=== PATIENT | male | born 1935 | race Caucasian/White ===

== ENCOUNTER → 2017-05-05 11:27 | Outpatient (CLI) | payer MEDICARE, SELFPAY ==
[2017-05-05 14:33] LABS: Hematocrit 44.6 % (40-54); Hemoglobin 14.6 g/dl (13.0-16.5); Mean Corp Hgb Conc 32.7 g/gl (32-36); Mean Corpuscular Hgb 31.9 pg (27.0-32.0); Mean Corpuscular Volume 97.4 fL (80-94); Mean Platelet Vol. 11.1 fl (6.2-12.0); Platelet Count 176 K/mm3 (150-450); RBC Distribution Width CV 13.5 % (11.6-14.6); RBC Distribution Width SD 48.4 fl (35.1-43.9); Red Blood Count 4.58 M/mm3 (4.6-6.2); White Blood Count 5.9 K/mm3 (4.4-11.0)
[2017-05-05 14:36] LABS: Scan Indicated on CBC? Y/N NO
[2017-05-05 14:45] LABS: ALB/GLOB Ratio 0.8 RATIO (0.9-2.4); AST(SGOT) 29 U/L (15-37); Alanine Aminotransfer ALT/SGPT 37 U/L (16-61); Albumin, Serum 3.4 g/dL (3.2-5.0); Alkaline Phosphatase 89 U/L (45-117); Anion Gap 8 (5-15); BUN 16 mg/dL (7-18); BUN/Creat Ratio 15.4 RATIO (10-20); Calcium,Total 8.8 mg/dL (8.5-10.1); Chloride 106 mmol/L (98-107); Creatinine, Serum 1.04 mg/dL (0.70-1.30); EST Glomerular Filtration Rate 73 mL/min (>60); Est Glom Filt Rate - Afr Amer 88 mL/min (>60); Glucose 134 mg/dL (74-106); Potassium 4.3 mmol/L (3.5-5.1); Protein, Total 7.4 g/dL (6.4-8.2); Sodium Level 140 mmol/L (136-145); Thyroid Stim Hormone (TSH) 1.16 uIU/mL (0.358-3.74)
[2017-05-06 08:34] LABS: Vitamin B12 382 pg/mL (211-911)
== END ==
PROVIDERS: Family Provider Family Medicine; PCP Family Medicine; Visit Provider Family Medicine
DX: E11.9 Type 2 diabetes mellitus without complications (principal); R41.3 Other amnesia
CPT/HCPCS: 36415; 80053; 82607; 84443; 85027

== ENCOUNTER → 2018-05-27 | Outpatient (CLI) | payer MEDICARE, SELFPAY ==
[2014-02-21 11:14] VITALS: BMI 25.0
[2018-05-27 14:25] LABS: Anion Gap 10 (5-15); BUN 18 mg/dL (7-18); BUN/Creat Ratio 16.7 RATIO (10-20); Chloride 102 mmol/L (98-107); Cholesterol 171 mg/dL (200); Creatinine, Serum 1.08 mg/dL (0.70-1.30); EST Glomerular Filtration Rate 69 mL/min (>60); Est Glom Filt Rate - Afr Amer 84 mL/min (>60); Glucose 180 mg/dL (74-106); High Density Lipoprotein 65 mg/dL; Potassium 4.2 mmol/L (3.5-5.1); Sodium Level 139 mmol/L (136-145); Triglycerides 171 mg/dL; Very Low Density Lipoprotein 34 mg/dL (5-40)
== END | disposition home or self-care (01) ==
PROVIDERS: Family Provider Family Medicine; PCP Family Medicine; Referring Provider Family Medicine; Visit Provider Family Medicine
DX: I10 Essential (primary) hypertension (principal)
CPT/HCPCS: 36415; 80048; 80061

== ENCOUNTER → 2018-12-23 | Outpatient (CLI) | payer MEDICARE, SELFPAY ==
[2014-02-21 11:14] VITALS: BMI 25.0
--- NOTE | 2018-12-23 10:30 | LES_PTH ---
PATIENT: AUDRA MAURICE LOC: YE U#:[id number] AGE/SX: 83/M ROOM: RE12/23/[address]: Dr. Ron Riggins MD : [id number] BED: DIS: 12/23/2018 SPEC #: [id number] RECD: 12/23/18 14:35 STATUS: FRANCINE SOHAN #: [id number] CATRACHITO: 12/23/18 10:[address]: Ron Riggins DEPT: SURGICAL PATHOLOGY RECD BY: Syed De La Cruz Tissues: A - Skin of back, NOS B - Skin of chest Procedures: Surgery Specimen Level IV HEADER OPERATION: Shave biopsy right upper back; shave biopsy chest PRE-OP DIAGNOSIS: ?SCC; ?BCC TISSUE SUBMITTED: A - Right upper back, B - Chest MICROSCOPIC DIAGNOSIS A. Skin lesion of right upper back, shave biopsy: Basal cell carcinoma, superficial, multifocal. See comment. B. Skin lesion of chest, shave biopsy: Basal cell carcinoma, superficial, multifocal. See comment. AM:joaquin 12/27/18 COMMENT A. The lesion extends focally to the deep margin of excision. Clinical correlation is suggested. B. The lesion focally extends to the deep margin of excision. Case has been reviewed in consultation with Dr. Gallegos who concurs with the above diagnosis. IDC:[email or web address] MICROSCOPIC DESCRIPTION Slides are reviewed. GROSS DESCRIPTION A - Received in fixative is one container labeled with the patient's name and designated right back. The specimen consists of a shave biopsy of amezcua-white skin measuring 2.5 x 1.7 x 0.1 cm. The specimen is inked and submitted entirely in one cassette. It will be sectioned at the time of embedding. B - Received in fixative is one container labeled with the patient's name and designated right chest. The specimen consists of a shave biopsy of amezcua-white skin measuring 0.5 x 0.5 x 0.1 cm. The specimen is inked and submitted entirely in one cassette. It will be bisected at the time of embedding. / KEIRY:joaquin 12/24/18 TC:0 [facility]: [id number] x2
== END | disposition home or self-care (01) ==
LOC: LABSPEC 15:04
PROVIDERS: Family Provider Family Medicine; PCP Family Medicine; Referring Provider Family Medicine; Visit Provider Family Medicine
DX: C44.519 Basal cell carcinoma of skin of other part of trunk (principal)
CPT/HCPCS: 88305

== ENCOUNTER → 2019-11-18 | Outpatient (CLI) | payer MEDICARE, SELFPAY ==
[2014-02-21 11:14] VITALS: BMI 25.0
[2019-11-18 16:00] LABS: ALB/GLOB Ratio 0.7 RATIO (0.9-2.4); AST(SGOT) 35 U/L (15-37); Alanine Aminotransfer ALT/SGPT 39 U/L (16-61); Albumin, Serum 3.1 g/dL (3.2-5.0); Alkaline Phosphatase 98 U/L (45-117); Anion Gap 7 (5-15); BUN 17 mg/dL (7-18); BUN/Creat Ratio 15.7 RATIO (10-20); Calcium,Total 9.2 mg/dL (8.5-10.1); Chloride 105 mmol/L (98-107); Cholesterol 151 mg/dL (200); Creatinine, Serum 1.08 mg/dL (0.70-1.30); EST Glomerular Filtration Rate 69 mL/min (>60); Est Glom Filt Rate - Afr Amer 84 mL/min (>60); Globulin 4.7 g/dL (2.2-4.2); Glucose 139 mg/dL (74-106); High Density Lipoprotein 74 mg/dL; Potassium 4.7 mmol/L (3.5-5.1); Protein, Total 7.8 g/dL (6.4-8.2); Sodium Level 138 mmol/L (136-145); Thyroid Stim Hormone (TSH) 1.09 uIU/mL (0.358-3.74); Triglycerides 132 mg/dL; Very Low Density Lipoprotein 26 mg/dL (5-40)
== END | disposition home or self-care (01) ==
LOC: MFPLAB 11:27
PROVIDERS: PCP Family Medicine; Referring Provider Family Medicine; Visit Provider Family Medicine
DX: E11.9 Type 2 diabetes mellitus without complications (principal)
CPT/HCPCS: 36415; 80053; 80061; 84443

== ENCOUNTER → 2020-02-23 | Outpatient (CLI) | payer MEDICARE, SELFPAY ==
[2020-02-01 11:12] VITALS: BMI 26.3
== END | disposition home or self-care (01) ==
LOC: LABSPEC 14:42
PROVIDERS: PCP Family Medicine; Visit Provider Surgery
DX: D49.2 Neoplasm of unspecified behavior of bone, soft tissue, and skin (principal); L98.492 Non-pressure chronic ulcer of skin of other sites with fat layer exposed; Z85.828 Personal history of other malignant neoplasm of skin
CPT/HCPCS: 87070; 87075; 87205

== ENCOUNTER → 2020-03-06 11:18 | Outpatient (CLI) | payer MEDICARE, SELFPAY ==
[2020-02-01 11:12] VITALS: BMI 26.3
[2020-03-06 15:37] LABS: ALB/GLOB Ratio 0.6 RATIO (0.9-2.4); AST(SGOT) 39 U/L (15-37); Alanine Aminotransfer ALT/SGPT 40 U/L (16-61); Alkaline Phosphatase 111 U/L (45-117); Anion Gap 9 (5-15); BUN 17 mg/dL (7-18); BUN/Creat Ratio 14.4 RATIO (10-20); Calcium,Total 8.7 mg/dL (8.5-10.1); Chloride 101 mmol/L (98-107); Creatinine, Serum 1.18 mg/dL (0.70-1.30); EST Glomerular Filtration Rate 62 mL/min (>60); Est Glom Filt Rate - Afr Amer 75 mL/min (>60); Globulin 4.8 g/dL (2.2-4.2); Glucose 261 mg/dL (74-106); Protein, Total 7.8 g/dL (6.4-8.2); Sodium Level 134 mmol/L (136-145)
== END ==
PROVIDERS: PCP Family Medicine; Referring Provider Nurse Practitioner Family; Visit Provider Nurse Practitioner Family
DX: D49.2 Neoplasm of unspecified behavior of bone, soft tissue, and skin (principal); L98.492 Non-pressure chronic ulcer of skin of other sites with fat layer exposed; Z85.828 Personal history of other malignant neoplasm of skin
CPT/HCPCS: 36415; 80053

== ENCOUNTER 2020-03-15 11:00 | Outpatient (RCR) | payer MEDICARE, SELFPAY ==
[2020-02-01 11:12] VITALS: BMI 26.3
== END 2020-03-15 23:59 ==
LOC: IMMUN 11:00
PROVIDERS: PCP Family Medicine; Visit Provider Family Medicine
DX: Z23 Encounter for immunization (principal)
CPT/HCPCS: 0011A; 0012A; 91301

== ENCOUNTER → 2020-03-28 13:56 | Outpatient (CLI) | payer MEDICARE, SELFPAY ==
[2020-02-01 11:12] VITALS: BMI 26.3
[2020-03-28 14:34] LABS: ALB/GLOB Ratio 0.6 RATIO (0.9-2.4); AST(SGOT) 37 U/L (15-37); Alanine Aminotransfer ALT/SGPT 32 U/L (16-61); Alkaline Phosphatase 104 U/L (45-117); Anion Gap 5 (5-15); BUN 21 mg/dL (7-18); BUN/Creat Ratio 18.4 RATIO (10-20); Calcium,Total 9.3 mg/dL (8.5-10.1); Chloride 105 mmol/L (98-107); Creatinine, Serum 1.14 mg/dL (0.70-1.30); EST Glomerular Filtration Rate 65 mL/min (>60); Est Glom Filt Rate - Afr Amer 79 mL/min (>60); Globulin 4.9 g/dL (2.2-4.2); Glucose 107 mg/dL (74-106); Potassium 4.4 mmol/L (3.5-5.1); Protein, Total 7.9 g/dL (6.4-8.2); Sodium Level 138 mmol/L (136-145)
== END ==
PROVIDERS: Nurse Practitioner Family; PCP Family Medicine; Referring Provider Surgery; Visit Provider Surgery
DX: D49.2 Neoplasm of unspecified behavior of bone, soft tissue, and skin (principal); L98.492 Non-pressure chronic ulcer of skin of other sites with fat layer exposed; Z85.828 Personal history of other malignant neoplasm of skin
CPT/HCPCS: 36415; 80053

== ENCOUNTER → 2020-04-27 10:17 | Outpatient (CLI) | payer MEDICARE, SELFPAY ==
[2020-02-01 11:12] VITALS: BMI 26.3
[2020-04-27 10:54] LABS: ALB/GLOB Ratio 0.6 RATIO (0.9-2.4); AST(SGOT) 35 U/L (15-37); Alanine Aminotransfer ALT/SGPT 31 U/L (16-61); Albumin, Serum 2.9 g/dL (3.2-5.0); Alkaline Phosphatase 107 U/L (45-117); Anion Gap 7 (5-15); BUN 19 mg/dL (7-18); BUN/Creat Ratio 14.6 RATIO (10-20); Calcium,Total 8.9 mg/dL (8.5-10.1); Chloride 102 mmol/L (98-107); EST Glomerular Filtration Rate 56 mL/min (>60); Est Glom Filt Rate - Afr Amer 67 mL/min (>60); Globulin 4.9 g/dL (2.2-4.2); Glucose 286 mg/dL (74-106); Potassium 4.4 mmol/L (3.5-5.1); Protein, Total 7.8 g/dL (6.4-8.2); Sodium Level 136 mmol/L (136-145)
== END ==
PROVIDERS: Nurse Practitioner Family; PCP Family Medicine; Referring Provider Surgery; Visit Provider Surgery
DX: D49.2 Neoplasm of unspecified behavior of bone, soft tissue, and skin (principal); L98.492 Non-pressure chronic ulcer of skin of other sites with fat layer exposed; Z85.828 Personal history of other malignant neoplasm of skin
CPT/HCPCS: 36415; 80053

== ENCOUNTER → 2020-11-13 09:30 | Outpatient (CLI) | payer MEDICARE, SELFPAY ==
[2020-11-13 16:00] LABS: ALB/GLOB Ratio 0.4 RATIO (0.9-2.4); AST(SGOT) 38 U/L (15-37); Alanine Aminotransfer ALT/SGPT 31 U/L (16-61); Albumin, Serum 2.4 g/dL (3.2-5.0); Alkaline Phosphatase 91 U/L (45-117); Anion Gap 9 (5-15); BUN 20 mg/dL (7-18); BUN/Creat Ratio 18.9 RATIO (10-20); Chloride 103 mmol/L (98-107); Cholesterol 116 mg/dL (200); Creatinine, Serum 1.06 mg/dL (0.70-1.30); EST Glomerular Filtration Rate 70 mL/min (>60); Est Glom Filt Rate - Afr Amer 85 mL/min (>60); Globulin 6.2 g/dL (2.2-4.2); Glucose 141 mg/dL (74-106); High Density Lipoprotein 57 mg/dL; Potassium 4.1 mmol/L (3.5-5.1); Protein, Total 8.6 g/dL (6.4-8.2); Sodium Level 138 mmol/L (136-145); Thyroid Stim Hormone (TSH) 1.26 uIU/mL (0.358-3.74); Triglycerides 98 mg/dL; Very Low Density Lipoprotein 20 mg/dL (5-40)
== END ==
PROVIDERS: PCP Family Medicine; Referring Provider Family Medicine; Visit Provider Family Medicine
DX: E11.9 Type 2 diabetes mellitus without complications (principal)
CPT/HCPCS: 36415; 80053; 80061; 84443

== ENCOUNTER 2021-05-31 14:17 | Outpatient (CLI) | payer MEDICARE, SELFPAY ==
[2021-05-31 17:47] LABS: Hematocrit 30.9 % (40-54); Hemoglobin 10.1 g/dL (13.0-16.5); Mean Corp Hgb Conc 32.7 g/dL (32-36); Mean Corpuscular Hgb 32.5 pg (27.0-32.0); Mean Corpuscular Volume 99.4 fL (80-94); Mean Platelet Vol. 10.2 fl (6.2-12.0); Platelet Count 196 K/mm3 (150-450); RBC Distribution Width CV 15.3 % (11.6-14.6); RBC Distribution Width SD 55.2 fl (35.1-43.9); Red Blood Count 3.11 M/mm3 (4.6-6.2); White Blood Count 4.5 K/mm3 (4.4-11.0)
[2021-05-31 18:11] LABS: ALB/GLOB Ratio 0.3 RATIO (0.9-2.4); AST(SGOT) 42 U/L (15-37); Alanine Aminotransfer ALT/SGPT 28 U/L (16-61); Albumin, Serum 1.8 g/dL (3.2-5.0); Alkaline Phosphatase 99 U/L (45-117); Anion Gap 11 (5-15); BUN 22 mg/dL (7-18); BUN/Creat Ratio 18.6 RATIO (10-20); Calcium,Total 8.8 mg/dL (8.5-10.1); Chloride 101 mmol/L (98-107); Creatinine, Serum 1.18 mg/dL (0.70-1.30); EST Glomerular Filtration Rate 62 mL/min (>60); Est Glom Filt Rate - Afr Amer 75 mL/min (>60); Globulin 7.1 g/dL (2.2-4.2); Glucose 116 mg/dL (74-106); Prealbumin 6.3 mg/dL (20.0-40.0); Protein, Total 8.9 g/dL (6.4-8.2); Sodium Level 134 mmol/L (136-145); Thyroid Stim Hormone (TSH) 1.25 uIU/mL (0.358-3.74)
[2021-05-31 18:24] LABS: Erythrocyte Sedimentation Rate 57 mm/hr (0-20)
== END 2021-05-31 23:59 | disposition home or self-care (01) ==
LOC: MFPLAB 14:18
PROVIDERS: PCP Family Medicine; Referring Provider Family Medicine; Visit Provider Family Medicine
DX: R63.4 Abnormal weight loss (principal)
CPT/HCPCS: 36415; 80053; 84134; 84443; 85027; 85652

== ENCOUNTER → 2021-06-13 | Outpatient (CLI) | payer MEDICARE, SELFPAY ==
--- NOTE | 2021-06-13 12:52 | RAD_ITS ---
STUDY: X-RAY CHEST REASON FOR EXAM: Male, 86 years old. CHEST PAIN SOB TECHNIQUE: XR Chest 2 Views COMPARISON: 114 FINDINGS: There are bilateral pleural effusions. There are bilateral infiltrates. Normal size heart. Normal mediastinum and alexy. Normal visualized pulmonary arteries. There is atherosclerotic calcification of the aortic arch with tortuosity. There are diffuse degenerative changes of the visualized thoracic spine. There is degenerative osteoarthritis of the bilateral shoulders. There is no demonstrated abnormality of the visualized soft tissue structures of the upper abdomen. RAD/Chest PA and Lateral IMPRESSION: There are bilateral pleural effusions. There are bilateral infiltrates. Electronically Signed: Toño Nixon MD at 15:40 EDT ,
== END | disposition home or self-care (01) ==
LOC: MTRAD 12:51
PROVIDERS: PCP Family Medicine; Referring Provider Family Medicine; Visit Provider Family Medicine
DX: R06.02 Shortness of breath (principal)
CPT/HCPCS: 71046

== ENCOUNTER → 2021-06-13 | Outpatient (CLI) | payer MEDICARE, SELFPAY ==
--- NOTE | 2021-06-13 16:57 | CT_ITS ---
EXAM: CT CHEST WITH INTRAVENOUS CONTRAST CLINICAL INDICATION: bilateral pleural effusion Shortness of breath. TECHNIQUE: Helically acquired images were obtained of the chest with intravenous contrast. This CT exam was performed using one or more of the following dose reduction techniques: automated exposure control, adjustment of the mA and/or kV according to patient size, and/or use of iterative reconstruction technique. This report was created using VUEL[employer]IC report generation technology. CONTRAST: IV 100mL Isovue-300 RADIATION DOSE: CTDIvol = 15.19 mGy, DLP = 534.45 mGy-cm COMPARISON: None. FINDINGS: LUNGS AND PLEURAL SPACES: There is bilateral pneumonia. There are bilateral pleural effusions. No mass. HEART: There are calcifications of the coronary arteries. Heart size is normal. No pericardial effusion. MEDIASTINUM: Unremarkable. No mediastinal or hilar adenopathy. Esophagus is unremarkable. No hiatal hernia. THYROID: Unremarkable. No thyroid lesions. BONES/JOINTS: Healed right rib fractures. There are degenerative changes of the shoulders. There are multi-level degenerative changes of the thoracic spine. No suspicious lytic or blastic abnormality. VASCULATURE: There is atherosclerotic calcification of the aortic arch with tortuosity and elongation of the aortic arch and descending thoracic aorta. Thoracic aorta is non-dilated. No thoracic aortic dissection. No obvious central pulmonary embolism although this study was not performed with the pulmonary embolism protocol. LIVER: The liver is nodular in appearance. A focal mass is not identified. The finding is consistent for hepatic cirrhosis. GALLBLADDER AND BILE DUCTS: Solitary gallstone. INTRAPERITONEAL SPACE: Perihepatic ascites. CT/Chest WITH Contrast IMPRESSION: 1. The liver is nodular in appearance. A focal mass is not identified. The finding is consistent for hepatic cirrhosis. 2. Solitary gallstone. 3. Perihepatic ascites. 4. There is bilateral pneumonia. 5. There are bilateral pleural effusions. Electronically Signed: Toño Nixon MD at 17:41 EDT ,
== END | disposition home or self-care (01) ==
LOC: CT 16:54
PROVIDERS: PCP Family Medicine; Referring Provider Family Medicine; Visit Provider Family Medicine
DX: R06.02 Shortness of breath (principal); J90 Pleural effusion, not elsewhere classified
CPT/HCPCS: 71046; 71260; Q9967

== ENCOUNTER → 2021-06-14 | Outpatient (CLI) | payer MEDICARE, SELFPAY ==
[2021-06-14 15:03] LABS: Absolute Lymphocyte Count 0.82 X10^3/uL (0.83-4.51); Absolute Neutrophil Count 3.3 X10^3/uL (2.0-7.7); Basophil# 0.03 X10^3/uL; Basophil% 0.6 % (0-1); Hemoglobin 10.2 g/dL (13.0-16.5); Lymphocyte # 0.82 X10^3/ul (0.83-4.51); Lymphocyte % 16.1 % (19-41); Mean Corp Hgb Conc 31.9 g/dL (32-36); Mean Corpuscular Hgb 32.2 pg (27.0-32.0); Mean Corpuscular Volume 100.9 fL (80-94); Monocyte# 0.79 X10^3/uL; Monocyte% 15.5 % (0-10); NRBC Flagged by Analyzer 0 % (0-5); Neutrophil # 3.32 X10^3/uL (2.7-7.7); Neutrophil % 65.2 % (47-70); Platelet Count 238 K/mm3 (150-450); RBC Distribution Width CV 15.4 % (11.6-14.6); RBC Distribution Width SD 57.4 fl (35.1-43.9); Red Blood Count 3.17 M/mm3 (4.6-6.2); White Blood Count 5.1 K/mm3 (4.4-11.0)
[2021-06-14 15:10] LABS: International Normalized Ratio 1.8; Partial Thromboplast Time 43.8 Seconds (24.1-36.2); Prothrombin Time (Protime)PT. 20.4 SECONDS (11.7-14.9)
[2021-06-14 15:29] LABS: ALB/GLOB Ratio 0.2 RATIO (0.9-2.4); AST(SGOT) 38 U/L (15-37); Alanine Aminotransfer ALT/SGPT 26 U/L (16-61); Albumin, Serum 1.6 g/dL (3.2-5.0); Alkaline Phosphatase 88 U/L (45-117); Anion Gap 11 (5-15); BUN 18 mg/dL (7-18); BUN/Creat Ratio 15.3 RATIO (10-20); Calcium,Total 8.5 mg/dL (8.5-10.1); Chloride 100 mmol/L (98-107); Creatinine, Serum 1.18 mg/dL (0.70-1.30); EST Glomerular Filtration Rate 62 mL/min (>60); Est Glom Filt Rate - Afr Amer 75 mL/min (>60); Ferritin 318 ng/mL (26-388); GGTP 62 U/L (15-85); Globulin 6.8 g/dL (2.2-4.2); Glucose 165 mg/dL (74-106); Iron 54 ug/dL (65-175); Potassium 4.5 mmol/L (3.5-5.1); Protein, Total 8.4 g/dL (6.4-8.2); Sodium Level 131 mmol/L (136-145)
[2021-06-17 09:34] LABS: Hepatitis B Surface Antibody Non-Reactive; Hepatitis B Surface Antigen Non-Reactive (Nonreactive)
[2021-06-17 13:08] LABS: Hepatitis B Core Ab Total Negative (Negative); Hepatitis Be Ab Negative (Negative); Hepatitis Be Ag Negative (Negative)
[2021-06-17 16:04] LABS: Hepatitis B Core AB IgM Negative (Negative)
== END | disposition home or self-care (01) ==
LOC: MFPLAB 11:50
PROVIDERS: PCP Family Medicine; Referring Provider Family Medicine; Visit Provider Family Medicine
DX: K76.89 Other specified diseases of liver (principal)
CPT/HCPCS: 36415; 80053; 82728; 82977; 83540; 85025; 85610; 85730; 86704; 86705; 86706; 86707; 87340; 87350

== ENCOUNTER → 2021-06-24 | Outpatient (CLI) | payer MEDICARE, SELFPAY ==
--- NOTE | 2021-06-24 08:31 | CT_ITS ---
STUDY: CT ABDOMEN AND PELVIS WITH CONTRAST REASON FOR EXAM: Male, 86 years old. Anemia, elevated LFT, h/o tubular adenoma RADIATION DOSAGE (If Supplied By Facility): CTDIvol = ( 15.63 ) mGy, DLP = ( 1034.26 ) mGycm TECHNIQUE: Transaxial images were obtained from the dome of the diaphragm to the symphysis pubis with oral contrast. Oral and amp; IV Readi-CAT and amp; 100mL Isovue-300 was administered. Sagittal and coronal images were reconstructed. Individualized dose optimization techniques were used for this CT. COMPARISON: None. FINDINGS: There are small bilateral pleural effusions with bibasilar infiltrates/atelectasis. There is minimal mild degree of progression as compared to prior study. Coronary artery calcification. There is a diffuse contour abnormality of the liver consistent with cirrhotic changes. Small amount of the perihepatic fluid. There is a solitary gallstone. This measures 2.7 cm. Normal spleen. There is diffuse atrophy of the pancreas. Normal bilateral adrenal glands. Normal right kidney. Normal left kidney. Normal visualized stomach. Normal small intestine. There are multiple colonic diverticula consistent with diverticulosis. Moderate amount of fecal material is seen in the right hemicolon. The appendix is visualized and appears normal. There is diffuse atherosclerotic calcification of the abdominal aorta, without a demonstrated aneurysm. Normal inferior vena cava. Normal retroperitoneum. Normal urinary bladder. Small amount of free fluid is seen in the pelvis. The prostate measures 4.3 sinus by 3.6 cm. This causes indentation at the bladder base. Normal abdominal wall. There are diffuse degenerative changes of the visualized lumbar spine. Almost complete collapse of the L2 vertebrae. 50% loss of height of the L1 vertebrae. CT/Abdomen/Pelvis WITH Contrast IMPRESSION: Small bilateral pleural effusions with bibasilar atelectasis and/or infiltrates. Nodular contour of the liver with a small amount of perihepatic fluid. Small amount of fluid is seen in the pelvis. Solitary gallstone. Sigmoid diverticulosis. Electronically Signed: Francis Mora MD at 9:56 EDT ,
== END | disposition home or self-care (01) ==
LOC: CT 08:23
PROVIDERS: PCP Family Medicine; Referring Provider Family Medicine; Visit Provider Family Medicine
DX: D64.9 Anemia, unspecified (principal); R79.89 Other specified abnormal findings of blood chemistry; Z86.010 Personal history of colon polyps
CPT/HCPCS: 74177; Q9967

== ENCOUNTER → 2021-06-27 | Outpatient (CLI) | payer MEDICARE, SELFPAY ==
[2021-06-27 15:33] LABS: Anion Gap 8 (5-15); BUN 24 mg/dL (7-18); BUN/Creat Ratio 21.4 RATIO (10-20); Chloride 100 mmol/L (98-107); Creatinine, Serum 1.12 mg/dL (0.70-1.30); EST Glomerular Filtration Rate 66 mL/min (>60); Est Glom Filt Rate - Afr Amer 80 mL/min (>60); Glucose 218 mg/dL (74-106); Potassium 4.8 mmol/L (3.5-5.1); Sodium Level 132 mmol/L (136-145)
[2021-06-27 16:12] LABS: Osmolality, Serum 296 mOsm/KG (280-301)
[2021-06-30 16:08] LABS: PROEL- A/G Ratio 0.4 (0.7-1.7); PROEL- Albumin 2.5 g/dL (2.9-4.4); PROEL- Alpha-1 Globulin 0.2 g/dL (0.0-0.4); PROEL- Alpha-2 Globulin 0.5 g/dL (0.4-1.0); PROEL- Gamma Globulin 0.2 g/dL (0.4-1.8); PROEL- Globulin, Total 5.9 g/dL (2.2-3.9); PROEL- TOTAL PROTEIN 8.4 g/dL (6.0-8.5)
[2021-07-02 14:10] LABS: PROELU- Albumin, Urine 4.5 % (.); PROELU- Alpha-1-Globulin,Ur 0.1 % (.); PROELU- Alpha-2-Globulin,Ur 0.7 % (.); PROELU- Beta Globulin, Ur 92.8 % (.); PROELU- M-Spike, Ur 87.4 % (Not Observed)
[2021-07-02 22:14] LABS: Total Protein, Ur 288.4 mg/dL (Not Estab.)
== END | disposition home or self-care (01) ==
PROVIDERS: PCP Family Medicine; Referring Provider Family Medicine; Visit Provider Family Medicine
DX: E87.1 Hypo-osmolality and hyponatremia (principal); R77.1 Abnormality of globulin
CPT/HCPCS: 36415; 80048; 82140; 83930; 84165; 84166

== ENCOUNTER → 2021-07-04 | Outpatient (CLI) | payer MEDICARE, SELFPAY ==
[2021-07-04 12:45] LABS: Anion Gap 12 (5-15); BUN 33 mg/dL (7-18); BUN/Creat Ratio 26.8 RATIO (10-20); Chloride 96 mmol/L (98-107); Creatinine, Serum 1.23 mg/dL (0.70-1.30); EST Glomerular Filtration Rate 59 mL/min (>60); Est Glom Filt Rate - Afr Amer 72 mL/min (>60); Glucose 216 mg/dL (74-106); Sodium Level 131 mmol/L (136-145)
== END | disposition home or self-care (01) ==
LOC: MFPLAB 10:09
PROVIDERS: PCP Family Medicine; Referring Provider Family Medicine; Visit Provider Family Medicine
DX: I10 Essential (primary) hypertension (principal)
CPT/HCPCS: 36415; 80048

== ENCOUNTER → 2021-07-08 | Outpatient (CLI) | payer MEDICARE, SELFPAY ==
--- NOTE | 2021-07-08 10:25 | RAD_ITS ---
STUDY: X-RAY BONE SURVEY COMPLETE REASON FOR EXAM: Male, 86 years old. Plasma protein abnormality. TECHNIQUE: Frontal and lateral views of the skull, frontal and lateral views of the cervical spine, frontal and lateral views of the chest, frontal and lateral views of the thoracic spine, frontal and lateral views of the lumbar spine, frontal view of the pelvis, frontal views of both femurs, frontal views of both humeri and frontal views of both forearms, and frontal views of both the left and right tibia and fibula were obtained on 24 images. COMPARISON: CT of the chest dated 06/13/2021. FINDINGS: CHEST: Diffuse interstitial pattern with bilateral pleural effusions. Marked cardiomegaly. Diffuse osteopenia of the visualized osseous structures. There is no demonstrated abnormality of the visualized soft tissue structures of the upper abdomen. PELVIS: Osteopenia. Barium within diverticula. 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 No focal lytic lesion. CERVICAL SPINE: Osteopenia. Diffuse moderate cervical spondylosis most prevalent at C5-6 and C6-7 with osteophytes. No focal lytic lesion. The soft tissue structures are unremarkable. THORACIC SPINE: Osteopenia. Moderate thoracolumbar spondylosis with mild dextroscoliosis. The soft tissue structures are unremarkable. LUMBAR SPINE: Osteopenia. Anterior wedge compression deformities of L1 and L2, age undetermined. Diffuse lumbosacral spondylosis Marked vascular calcification. RIGHT FEMUR: Osteopenia. No focal lytic lesion identified. Normal visualized soft tissue structure. LEFT FEMUR: Osteopenia. No focal lytic lesion identified. Normal visualized soft tissue structure. RIGHT HUMERUS : Osteopenia. No focal lytic lesion identified. There is no demonstrated soft tissue abnormality. LEFT HUMERUS: Osteopenia. No focal lytic lesion identified. There is no demonstrated soft tissue abnormality. SKULL: Osteopenia. Normal osseous calvarium without focal lytic lesion. Normal visualized facial bones. Normal visualized paranasal sinuses. RAD/Bone Survey Comp(Axial&Append) IMPRESSION: Osteopenia with osteoarthritic changes. No focal lytic lesion identified. Electronically Signed: Williams Neumann MD at 11:33 EDT ,
== END | disposition home or self-care (01) ==
PROVIDERS: PCP Family Medicine; Referring Provider Family Medicine; Visit Provider Family Medicine
DX: R77.9 Abnormality of plasma protein, unspecified (principal)
CPT/HCPCS: 77075